=== PATIENT | female | born 1945 | race Caucasian/White ===

== ENCOUNTER 2022-10-19 10:54 | Day surgery (SDC) | payer MEDICARE ==
[2022-10-18 13:32] LABS: BASOPHILS % (AUTO) 0.7 % (0-1); EOSINOPHILS # (AUTO) 0.1 X10'3 (0-0.9); EOSINOPHILS % (AUTO) 2.4 % (0-6); HEMATOCRIT 37.4 % (35.0-45.0); HEMOGLOBIN 12.2 g/dl (12.0-16.0); LYMPHOCYTES # (AUTO) 1.6 X10'3 (1.1-4.8); LYMPHOCYTES % (AUTO) 26.2 % (21-51); MEAN CORPUSCULAR HEMOGLOBIN 30.8 PG (27.0-31.0); MEAN CORPUSCULAR HGB CONC 32.6 g/dL (33.0-36.5); MEAN CORPUSCULAR VOLUME 94.4 FL (78-98); MEAN PLATELET VOLUME 9.3 FL (7.4-10.4); MONOCYTES # (AUTO) 0.6 X10'3 (0-0.9); MONOCYTES % (AUTO) 10.2 % (2-12); NEUTROPHILS # (AUTO) 3.7 X10'3 (1.8-7.7); NEUTROPHILS % (AUTO) 60.5 % (42-75); PLATELET COUNT 255 X10'3 (140-440); RED BLOOD COUNT 3.97 X10'6 (4.20-5.60); RED CELL DISTRIBUTION WIDTH 13.9 % (11.5-14.5); WHITE BLOOD COUNT 6.1 X10'3 (4.5-11.0)
[2022-10-18 13:39] LABS: ALBUMIN 3.8 G/DL (3.4-5.0); ANION GAP 8 (8-16); BLOOD UREA NITROGEN 15 MG/DL (7-18); BUN/CREATININE RATIO 14.4 (10.0-20.0); CHLORIDE 102 MMOL/L (99-107); CREATININE 1.04 MG/DL (0.40-0.90); GLUCOSE 98 MG/DL (70-104); POTASSIUM 4.2 MMOL/L (3.5-5.1); SODIUM 136 MMOL/L (135-145); TOTAL CARBON DIOXIDE 26.2 MMOL/L (24-32); eGFR 51 ML/MIN
[2022-10-18 13:42] LABS: APTT 26 SECONDS (22-32)
[~2022-10-19] VITALS: Ht 157.5 cm; Wt 59.2 kg
[2022-10-19] VITALS (10 sets, daily range): BP systolic 117–157; BP diastolic 44–77
[2022-10-19] MEDS ORDERED: ATOR-2 PO (11:23)
[2022-10-19] MEDS ORDERED: ASPI-611 PO (11:23)
[2022-10-19] MEDS ORDERED: CLOP75TA34 PO (11:23)
[2022-10-19] MEDS ORDERED: METO-395 PO (11:23)
[2022-10-19] MEDS ORDERED: LISI10TA27 PO (11:23)
[2022-10-19] MEDS ORDERED: CYAN100087 PO (11:23)
[2022-10-19] MEDS ORDERED: OMEG-5 PO (11:23)
[2022-10-19] MEDS ORDERED: BEMP1TAB PO (11:23)
[2022-10-19] MEDS ORDERED: CHOL100025 PO (11:23)
[2022-10-19] MEDS ORDERED: GLUC-95 PO (11:23)
[2022-10-19] MEDS ORDERED: LEVO50TA8 PO (11:23)
[2022-10-19] MEDS ORDERED: normal saline 1,000 ML IV SCH (11:30)
[2022-10-19] MEDS ORDERED: LORazepam 0.5 MG tablet PO PRN (11:30)
[2022-10-19] MEDS ORDERED: diphenhydrAMINE 25mg capsule PO PRN (11:30)
[2022-10-19] MEDS ORDERED: midazolam 1 mg/ML 2ml injection ONE (12:19)
[2022-10-19] MEDS ORDERED: LIDOcaine 1% (10mg/ml) 2ml vial ONE (12:19)
[2022-10-19] MEDS ORDERED: nitroGLYCERIN-Tridil 50MG/D5W 250 ML IV ONE (12:19)
[2022-10-19] MEDS ORDERED: verapamil 2.5 mg/ml inj IV ONE (12:19)
[2022-10-19] MEDS ORDERED: fentaNYL/PF 50MCG/1 ML 2ML syringe ONE (12:19)
[2022-10-19] MEDS ORDERED: iohexol 350 MG/ML 50ML vial IV ONE (12:20)
[2022-10-19] MEDS ORDERED: iohexol 350MG/ML 100ml bottle IV ONE (12:20)
[2022-10-19] MEDS ORDERED: heparin 1,000unit/ml 10ml vial 10 ML ONE (12:20)
[2022-10-19] MEDS ORDERED: LIDOcaine 1% (10mg/ml)w/preservative inj. 20ml MDV ONE (15:10)
[2022-10-19] MEDS ORDERED: normal saline 1000ml 1,000 ML IV SCH (16:05)
== END 2022-10-19 20:00 | disposition home or self-care (01) ==
LOC: SSTAY O 10:54
PROVIDERS: ATTEND Internal Medicine Cardiovascular Disease
DX: I25.10 Atherosclerotic heart disease of native coronary artery without angina pectoris (principal); I10 Essential (primary) hypertension; E78.5 Hyperlipidemia, unspecified; E03.9 Hypothyroidism, unspecified; M81.0 Age-related osteoporosis without current pathological fracture; Z95.5 Presence of coronary angioplasty implant and graft; Z79.899 Other long term (current) drug therapy; Z79.82 Long term (current) use of aspirin; Z98.890 Other specified postprocedural states; Z90.710 Acquired absence of both cervix and uterus; Z72.89 Other problems related to lifestyle; Z88.8 Allergy status to other drugs, medicaments and biological substances; Z88.5 Allergy status to narcotic agent; Z79.01 Long term (current) use of anticoagulants
CPT/HCPCS: 36415; 76937; 80048; 85025; 85610; 85730; 93005; 93458; 99152; J1644; J2250; J3010; J3490; J7030; Q0163; Q9967; 99153; A6258; A6449; C1725; C1760; C1894